=== PATIENT | male | born 1945 | race Caucasian/White ===

== ENCOUNTER 2017-10-01 08:55 | Observation (INO) | payer MEDICARE, OTHER ==
[2017-10-01] VITALS (12 sets, daily range): BP systolic 123–159; BP diastolic 53–82; PULSE 62–106; RESP 16–22; TEMP 96.1–97.2; O2SAT 97–100
[~2017-10-01] VITALS: Ht 177.8 cm; Wt 63.0 kg
[~2017-10-01 08:55] MED LIST: AMOX500C PO; BIAX500T PO; METR-1 PO; NICO14DI18 TD; Z.0.UNKNOWN
[2017-10-01] MEDS ORDERED: MORPHINE SULFATE 4 MG/ML INJ IV PUSH ONE (09:15)
[2017-10-01] MEDS ORDERED: SODIUM CHLORID 0.9% 500 ML INJ 500 ML IV ONE (09:15)
[2017-10-01] MEDS ORDERED: SODIUM CHLORIDE 0.9% FLUSH 10 ML FLUSH IVF PRN (09:15)
[2017-10-01] MEDS ORDERED: NITROGLYCERIN 0.4 MG SL 25 TABS/BTL SL ONE (09:15)
[2017-10-01] MEDS ORDERED: ASPIRIN 325 MG TAB PO ONE (09:15)
--- NOTE | 2017-10-01 09:19 | PD ---
HPI Chief Complaint: Chest Pain Time Seen by Provider: 09:07 Travel History International Travel<30 days: No Contact w/Intl Traveler<30days: No Traveled to known affect area: No History of Present Illness HPI 72-year-old male complains of pain in the middle portion of the left chest with radiation to the left shoulder. It's painful to move the left arm. Patient states the pain is severe and prevents him from sleeping. Stroke pleuritic component reported. He denies any potential musculoskeletal injury/strain to account for the pain. He's had no fever. Occasional chronic cough is reported. Positive smoking history. Patient denies hypertension diabetes and coronary disease. He reports compliance with dyslipidemia medications. PFSH Past Medical History Anemia: Yes Cancer: No Cardiovascular Problems: No Diminished Hearing: No Endocrine: No Genitourinary: No Immune Disorder: No Musculoskeletal: Yes (LEFT DAMAGED ROTATOR CUFF) Neurologic: No Psychiatric: No Reproductive: No Respiratory: No Social History Alcohol Use: Yes (2 BEERS DAILY) Tobacco Use: Yes (1/2 PPD FOR 30 YEARS ) Substance Use: No Allergies-Medications (Allergen,Severity, Reaction): Coded Allergies: No Known Allergies (Verified Allergy, Unknown, 10/01/17) Reported Meds & Prescriptions Reported Meds & Active Scripts Active Reported Fosamax (Alendronate Sodium) 70 Mg Tab 70 Mg PO Q7D Omeprazole 20 Mg Tab 20 Mg PO DAILY [Chol Med] Review of Systems Except as stated in HPI: all other systems reviewed are Neg General / Constitutional: No: Fever Physical Exam Narrative GENERAL: 72-year-old male pleasant well-nourished well-developed Vital Signs Date Time Temp Pulse Resp B/P (MAP) Pulse Ox O2 Delivery O2 Flow Rate FiO2 10/01/17 09:08 18 100 Room Air 10/01/17 09:01 97.2 106 22 159/70 (99) 100 SKIN: Warm and dry. HEAD: Atraumatic. Normocephalic. EYES: Pupils equal and round. No scleral icterus. No injection or drainage. ENT: No nasal bleeding or discharge. Mucous membranes pink and moist. NECK: Trachea midline. No JVD. CARDIOVASCULAR: Regular rate and rhythm. There is tenderness overlying the region of the left upper lateral pectoralis. Tachycardia. Regular rhythm. Patient is well-perfused. RESPIRATORY: There is a pleuritic discomfort on exam. The lung sounds are present bilaterally. GASTROINTESTINAL: Abdomen soft, non-tender, nondistended. Hepatic and splenic margins not palpable. MUSCULOSKELETAL: Extremities without clubbing, cyanosis, or edema. No obvious deformities. NEUROLOGICAL: Awake and alert. No obvious cranial nerve deficits. Motor grossly within normal limits. Five out of 5 muscle strength in the arms and legs. Normal speech. PSYCHIATRIC: Appropriate mood and affect; insight and judgment normal. Data Data Last Documented VS Vital Signs Date Time Temp Pulse Resp B/P (MAP) Pulse Ox O2 Delivery O2 Flow Rate FiO2 10/01/17 12:22 92 16 123/54 (77) 100 Nasal Cannula 2.00 10/01/17 09:29 97.2 Orders Orders Electrocardiogram (10/01/17 09:11) Basic Metabolic Panel (Bmp) (10/01/17 09:11) Ckmb (Isoenzyme) Profile (10/01/17 09:11) Complete Blood Count With Diff (10/01/17 09:11) Magnesium (Mg) (10/01/17 09:11) Prothrombin Time / Inr (Pt) (10/01/17 09:11) Act Partial Throm Time (Ptt) (10/01/17 09:11) Troponin I (10/01/17 09:11) Ecg Monitoring (10/01/17 09:11) Bilateral Bp Monitoring (10/01/17 09:11) Iv Access Insert/Monitor (10/01/17 09:11) Oximetry (10/01/17 09:11) Oxygen Administration (10/01/17 09:11) Aspirin (Aspirin) (10/01/17 09:15) Morphine Inj (Morphine Inj) (10/01/17 09:15) Sodium Chloride 0.9% Flush (Ns Flush) (10/01/17 09:15) Nitroglycerin Sl (Nitrostat Sl) (10/01/17 09:15) Sodium Chlorid 0.9% 500 Ml Inj (Ns 500 M (10/01/17 09:15) Ct Pulmonary Angiogram (10/01/17 09:11) Chest, Pa & Lat (10/01/17 09:11) Iohexol 350 Inj (Omnipaque 350 Inj) (10/01/17 11:21) Furosemide Inj (Lasix Inj) (10/01/17 12:30) B-Type Natriuretic Peptide (10/01/17 12:30) Admit Order (Ed Use Only) (10/01/17 ) Program Schedule Clerk / Telemetry TARI.Q8H (10/01/17 12:31) Vital Signs (Adult) Q4H (10/01/17 12:31) Diet Heart Healthy (10/01/17 Lunch) Activity Oob With Assistance (10/01/17 12:31) Labs Laboratory Tests Test 10/01/17 09:15 10/01/17 12:30 White Blood Count 11.6 TH/MM3 Red Blood Count 3.69 MIL/MM3 Hemoglobin 9.9 GM/DL Hematocrit 29.8 % Mean Corpuscular Volume 80.8 FL Mean Corpuscular Hemoglobin 26.7 PG Mean Corpuscular Hemoglobin Concent 33.1 % Red Cell Distribution Width 14.6 % Platelet Count 582 TH/MM3 Mean Platelet Volume 6.5 FL Neutrophils (%) (Auto) 71.6 % Lymphocytes (%) (Auto) 14.9 % Monocytes (%) (Auto) 9.8 % Eosinophils (%) (Auto) 2.8 % Basophils (%) (Auto) 0.9 % Neutrophils # (Auto) 8.4 TH/MM3 Lymphocytes # (Auto) 1.7 TH/MM3 Monocytes # (Auto) 1.1 TH/MM3 Eosinophils # (Auto) 0.3 TH/MM3 Basophils # (Auto) 0.1 TH/MM3 CBC Comment DIFF FINAL Differential Comment Prothrombin Time 12.0 SEC Prothromb Time International Ratio 1.2 RATIO Activated Partial Thromboplast Time 31.3 SEC Blood Urea Nitrogen 11 MG/DL Creatinine 1.10 MG/DL Random Glucose 114 MG/DL Calcium Level 8.8 MG/DL Magnesium Level 1.9 MG/DL Sodium Level 138 MEQ/L Potassium Level 4.1 MEQ/L Chloride Level 104 MEQ/L Carbon Dioxide Level 24.8 MEQ/L Anion Gap 9 MEQ/L Estimat Glomerular Filtration Rate 66 ML/MIN Total Creatine Kinase 26 U/L Troponin I LESS THAN 0.02 NG/ML B-Type Natriuretic Peptide 79 PG/ML MDM Medical Decision Making Medical Screen Exam Complete: Yes Emergency Medical Condition: Yes Medical Record Reviewed: Yes Differential Diagnosis NSTEMI, unstable angina, coronary vasospasm, PE, PTX, aortic dissection, pericarditis, myocarditis, endocarditis, PNA, esophageal disease, aneurysm, musculoskeletal etiologies, anxiety, cocaine/sympathomimetic abuse Narrative Course EKG shows a sinus rhythm at a rate of 81 with a right bundle branch block pattern with a similar pattern observed 7 years prior RN reports rhythm strip reveals runs of bigeminy CBC & BMP Diagram 10/01/17 09:15 Calcium Level 8.8, Magnesium Level 1.9 Last Impressions Chest X-Ray 10/01/17910 Signed Impressions: Service Date/Time: Sunday, October 01, 2017 09:28 - CONCLUSION: Compensated cardiomegaly without failure Maycol Duong MD FACR CT Angiography 10/01/17910 Signed Impressions: Service Date/Time: Sunday, October 01, 2017 11:10 - CONCLUSION: Cardiomegaly with mild congestive failure. Negative for central pulmonary emboli. Maycol Duong MD FACR The patient will stay with us in the setting of congestive heart failure with chest pain and possible coronary disease. 20 mg IV Lasix ordered at 1223. d/w Dr Vee for [facility] Critical Care Narrative Aggregate critical care time was 35 minutes. Time to perform other separately billable procedures was not included in the critical care time. My time did not include minutes spent treating any other patients simultaneously or on activities that did not directly contribute to the patient's treatment. The services I provided to this patient were to treat and/or prevent clinically significant deterioration that could result in: Cardiopulmonary arrest, respiratory arrest, sepsis I provided critical care services requiring my management, as noted below: Chart data review, documentation time, medication orders and management, vital sign assessments/reviewing monitor data, ordering and reviewing lab tests, ordering and interpreting/reviewing x-rays and diagnostic studies, care of the patient and discussion of the patient with the admitting physicians. Diagnosis Primary Impression: Congestive heart failure Qualified Codes: I50.9 - Heart failure, unspecified Additional Impressions: Chest pain Qualified Codes: R07.9 - Chest pain, unspecified Arrhythmia Qualified Codes: I49.9 - Cardiac arrhythmia, unspecified Admitting Information Admitting Physician Requests: Ad Chase MD Oct 01, 2017 09:19
[2017-10-01] MEDS ORDERED: CHOL MED (09:20)
[2017-10-01] MEDS ORDERED: OMEP20TA93 PO (09:20)
[2017-10-01] MEDS ORDERED: FOSA70TA PO (09:20)
[2017-10-01 09:30] LABS: AUTOMATED NEUTROPHIL # 8.4 TH/MM3 (1.8-7.7); BASOPHIL # 0.1 TH/MM3 (0-0.2); BASOPHIL % 0.9 % (0.0-2.0); EOSINOPHIL # 0.3 TH/MM3 (0-0.4); EOSINOPHIL % 2.8 % (0.0-4.0); HEMATOCRIT 29.8 % (39.0-51.0); HEMOGLOBIN 9.9 GM/DL (13.0-17.0); LYMPH % 14.9 % (9.0-44.0); LYMPHOCYTE # 1.7 TH/MM3 (1.0-4.8); MEAN CELL VOLUME 80.8 FL (80.0-100.0); MEAN CORPUSCULAR HEMOGLOBIN 26.7 PG (27.0-34.0); MEAN CORPUSCULAR HGB CONC 33.1 % (32.0-36.0); MEAN PLATELET VOLUME 6.5 FL (7.0-11.0); MONO % 9.8 % (0.0-8.0); MONOCYTE # 1.1 TH/MM3 (0-0.9); NEUT % 71.6 % (16.0-70.0); PLATELET COUNT 582 TH/MM3 (150-450); RED BLOOD COUNT 3.69 MIL/MM3 (4.50-5.90); RED CELL DISTRIBUTION WIDTH 14.6 % (11.6-17.2); WHITE BLOOD COUNT 11.6 TH/MM3 (4.0-11.0)
--- NOTE | 2017-10-01 09:46 | RADRPT ---
EXAM DATE/TIME: 10/01/2017 09:28 [facility] COMPARISON: No previous studies available for comparison. INDICATIONS : Left side chest pain. MEDICAL HISTORY : smoker SURGICAL HISTORY : None. ENCOUNTER: Initial ACUITY: 2 days PAIN SCORE: 8/10 LOCATION: Bilateral chest FINDINGS: Compensated cardiomegaly without failure. Thoracic aorta are tortuous and uncoiled. Moderate scolio sis. Osteopenia. Negative for pneumothorax. . CONCLUSION: Compensated cardiomegaly without failure Maycol Duong MD FACR on October 01, 2017 at 9:42 Board Certified Radiologist. This report was verified electronically.
[2017-10-01 09:58] LABS: INTERNATIONAL NORMALIZED RATIO 1.2 RATIO
[2017-10-01 10:17] LABS: CHLORIDE 104 MEQ/L (98-107); GLUCOSE,RANDOM 114 MG/DL (74-106); SODIUM (NA) 138 MEQ/L (136-145)
[2017-10-01 10:18] LABS: BICARBONATE 24.8 MEQ/L (21.0-32.0); CALCIUM 8.8 MG/DL (8.5-10.1); MAGNESIUM 1.9 MG/DL (1.5-2.5)
[2017-10-01 10:20] LABS: GLOMERULAR FILTRATION RATE 66 ML/MIN (>89)
[2017-10-01 10:26] LABS: BLOOD UREA NITROGEN 11 MG/DL (7-18)
[2017-10-01 10:34] LABS: TROPONIN I LESS THAN 0.02 NG/ML (0.02-0.05)
[2017-10-01] MEDS ORDERED: IOHEXOL 350 MG/ML 10 ML VIAL (for RAD DIAG) IVCONTRAST ONE (11:21)
--- NOTE | 2017-10-01 12:06 | RADRPT ---
EXAM DATE/TIME: 10/01/2017 11:10 [facility] COMPARISON: No previous studies available for comparison. INDICATIONS : Left chest pain radiating to left shoulder. IV CONTRAST: 75 cc Omnipaque 350 (iohexol) IV RADIATION DOSE: 8.32 CTDIvol (mGy) MEDICAL HISTORY : None SURGICAL HISTORY : None. ENCOUNTER: Initial ACUITY: 2 days PAIN SCALE: 7/10 LOCATION: Left chest TECHNIQUE: Volumetric scanning of the chest was performed using a pulmonary embolism protocol MIP images were re constructed. Using automated exposure control and adjustment of the mA and/or kV according to patien t size, radiation dose was kept as low as reasonably achievable to obtain optimal diagnostic quality images. DICOM format image data is available electronically for review and comparison. Follow-up recommendations for detected pulmonary nodules are based at a minimum on nodule size and pa tient risk factors according to Fleischner Society Guidelines. FINDINGS: PULMONARY ARTERIES: No filling defects are seen in the pulmonary arteries through the segmental level. LUNGS: Mild interstitial edema without pleural effusion. Minimal pleural thickening on the right MEDIASTINUM: There is good visualization of the great vessels of the middle mediastinum. No evidence of mediastin al or hilar adenopathy/mass. Dilatation of the ascending and descending aorta. Moderate coronary ca lcifications. Mitral valve annulus calcification. MUSCULOSKELETAL: CPT with degenerative changes in the thoracic spine. MISCELLANEOUS: The visualized upper abdominal organs demonstrate no acute abnormality. CONCLUSION: Cardiomegaly with mild congestive failure. Negative for central pulmonary emboli. Maycol Duong MD FACR on October 01, 2017 at 12:02 Board Certified Radiologist. This report was verified electronically.
[2017-10-01] MEDS ORDERED: FUROSEMIDE 20 MG/2 ML VIAL IV PUSH ONE (12:30)
[2017-10-01] MEDS ORDERED: SODIUM CHLORIDE 0.9% FLUSH 10 ML FLUSH IV FLUSH PRN (13:15)
--- NOTE | 2017-10-01 13:42 | HHI.HP ---
[facility] Service [facility] Primary Care Physician Yasmin Bell MD Admission Diagnosis CHF, Chest pain Diagnoses: Chief Complaint: Chest pain Travel History International Travel<30 Days: No Contact w/Intl Traveler <30 Da: No Traveled to Known Affected Are: No History of Present Illness This patient is a 72-year-old gentleman with at least [id number] history of tobaccoism who comes in with left-sided chest pain radiating to the left shoulder. He says the pain was severe and worse when he was sleeping he does have a chronic cough and thought his cough may have been worse. He notes no trauma to the area. He has not had any fevers or chills.. He said he noted increased coughing and increased shortness of breath over the last 48 hours. There have been no sick contacts. Review of Systems Constitutional: DENIES: Diaphoretic episodes, Fatigue, Fever, Weight gain, Weight loss, Chills, Dizziness, Change in appetite, Night Sweats Endocrine: DENIES: Heat/cold intolerance, Polydipsia, Polyuria, Polyphagia Eyes: DENIES: Blurred vision, Diplopia, Eye inflammation, Eye pain, Vision loss , Photosensitivity, Double Vision Ears, nose, mouth, throat: DENIES: Tinnitus, Hearing loss, Vertigo, Nasal discharge, Oral lesions, Throat pain, Hoarseness, Ear Pain, Running Nose, Epistaxis, Sinus Pain, Toothache, Odynophagia Respiratory: COMPLAINS OF: Cough, DENIES: Apneas, Snoring, Wheezing, Hemoptysis , Sputum production, Shortness of breath Cardiovascular: COMPLAINS OF: Chest pain, Dyspnea on Exertion Gastrointestinal: DENIES: Abdominal pain, Black stools, Bloody stools, Constipation, Diarrhea, Nausea, Vomiting, Difficulty Swallowing, Anorexia Genitourinary: DENIES: Sexual dysfunction, Urinary frequency, Urinary incontinence, Urgency, Hematuria, Dysuria, Nocturia, Penile Discharge, Testicular Pain, Testicular Swelling Musculoskeletal: DENIES: Joint pain, Muscle aches, Stiffness, Joint Swelling, Back pain, Neck pain Integumentary: DENIES: Abnormal pigmentation, Nail changes, Pruritus, Rash Hematologic/lymphatic: DENIES: Bruising, Lymphadenopathy Immunologic/allergic: DENIES: Eczema, Urticaria Neurologic: DENIES: Abnormal gait, Headache, Localized weakness, Paresthesias, Seizures, Speech Problems, Tremor, Poor Balance Psychiatric: DENIES: Anxiety, Confusion, Mood changes, Depression, Hallucinations, Agitation, Suicidal Ideation, Homicidal Ideation, Delusions Except as stated in HPI: all other systems reviewed are Neg Past Family Social History Past Medical History Prostate disease Dyspepsia Past Surgical History Rotator cuff Reported Medications Reviewed in the EMR Allergies: Coded Allergies: No Known Allergies (Verified Allergy, Unknown, 10/01/17) Active Ordered Medications Reviewed in the EMR Family History Mother and father from old age initially per patient however he said his mother when he was 4 years old and she was "young" Social History Chronic tobacco daily unquantified No alcohol Lives with his animals Physical Exam Vital Signs Vital Signs Date Time Temp Pulse Resp B/P (MAP) Pulse Ox O2 Delivery O2 Flow Rate FiO2 10/01/17 13:14 10/01/17 12:22 92 16 123/54 (77) 100 Nasal Cannula 2.00 10/01/17 09:44 97 16 136/53 (80) 100 Nasal Cannula 2.00 144/60 (88) 10/01/17 09:29 97.2 94 18 142/69 (93) 100 Nasal Cannula 2.00 10/01/17 09:23 Nasal Cannula 2.00 10/01/17 09:21 16 100 Room Air 10/01/17 09:08 18 100 Room Air 10/01/17 09:01 97.2 106 22 159/70 (99) 100 Physical Exam GENERAL: This is a well-nourished, well-developed patient, in no apparent distress. SKIN: No rashes, ecchymoses or lesions. Cool and dry. HEAD: Atraumatic. Normocephalic. No temporal or scalp tenderness. EYES: Pupils equal round and reactive. Extraocular motions intact. No scleral icterus. No injection or drainage. ENT: Nose without bleeding, purulent drainage or septal hematoma. Throat without erythema, tonsillar hypertrophy or exudate. Uvula midline. Airway patent. Severe caries and dental erosion NECK: Trachea midline. No JVD or lymphadenopathy. Supple, nontender, no meningeal signs. CARDIOVASCULAR: Sinus tachycardia without murmurs, gallops, or rubs. RESPIRATORY: Clear to auscultation. Breath sounds equal bilaterally. No wheezes , rales, or rhonchi. GASTROINTESTINAL: Abdomen soft, non-tender, nondistended. No hepato-splenomegaly , or palpable masses. No guarding. MUSCULOSKELETAL: Extremities without clubbing, cyanosis, or edema. No joint tenderness, effusion, or edema noted. No calf tenderness. Negative Homans sign bilaterally. NEUROLOGICAL: Awake and alert. Cranial nerves II through XII intact. Motor and sensory grossly within normal limits. Five out of 5 muscle strength in all muscle groups. Normal speech. Laboratory Laboratory Tests Test 10/01/17 09:15 White Blood Count 11.6 Red Blood Count 3.69 Hemoglobin 9.9 Hematocrit 29.8 Mean Corpuscular Volume 80.8 Mean Corpuscular Hemoglobin 26.7 Mean Corpuscular Hemoglobin Concent 33.1 Red Cell Distribution Width 14.6 Platelet Count 582 Mean Platelet Volume 6.5 Neutrophils (%) (Auto) 71.6 Lymphocytes (%) (Auto) 14.9 Monocytes (%) (Auto) 9.8 Eosinophils (%) (Auto) 2.8 Basophils (%) (Auto) 0.9 Neutrophils # (Auto) 8.4 Lymphocytes # (Auto) 1.7 Monocytes # (Auto) 1.1 Eosinophils # (Auto) 0.3 Basophils # (Auto) 0.1 CBC Comment DIFF FINAL Differential Comment Prothrombin Time 12.0 Prothromb Time International Ratio 1.2 Activated Partial Thromboplast Time 31.3 Blood Urea Nitrogen 11 Creatinine 1.10 Random Glucose 114 Calcium Level 8.8 Magnesium Level 1.9 Sodium Level 138 Potassium Level 4.1 Chloride Level 104 Carbon Dioxide Level 24.8 Anion Gap 9 Estimat Glomerular Filtration Rate 66 Total Creatine Kinase 26 Troponin I LESS THAN 0.02 Result Diagram: 10/01/1791410/01/17914 Imaging Last Impressions Chest X-Ray 10/01/17910 Signed Impressions: Service Date/Time: Sunday, October 01, 2017 09:28 - CONCLUSION: Compensated cardiomegaly without failure Maycol Duong MD FACR CT Angiography 10/01/17910 Signed Impressions: Service Date/Time: Sunday, October 01, 2017 11:10 - CONCLUSION: Cardiomegaly with mild congestive failure. Negative for central pulmonary emboli. Maycol Duong MD FACR Caprini VTE Risk Assessment Caprini VTE Risk Assessment: Mod/High Risk (score >= 2) Caprini Risk Assessment Model Point Value = 1 Point Value = 2 Point Value = 3 Point Value = 5 Age 41-60 Minor surgery BMI > 25 kg/m2 Swollen legs Varicose veins or History of unexplained or recurrent spontaneous Oral contraceptives or hormone replacement Sepsis (< 1 month) Serious lung disease, including pneumonia (< 1 month) Abnormal pulmonary function Acute myocardial infarction Congestive heart failure (< 1 month) History of inflammatory bowel disease Medical patient at bed rest Age 61-74 Arthroscopic surgery Major open surgery (> 45 min) Laparoscopic surgery (> 45 min) Malignancy Confined to bed (> 72 hours) Immobilizing plaster cast Central venous access Age >= 75 History of VTE Family history of VTE Factor V Leiden Prothrombin [id number] Lupus anticoagulant Anticardiolipin antibodies Elevated serum homocysteine Heparin-induced thrombocytopenia Other congenital or acquired thrombophilia Stroke (< 1 month) Elective arthroplasty Hip, pelvis, or leg fracture Acute spinal cord injury (< 1 month) Prophylaxis Regimen Total Risk Factor Score Risk Level Prophylaxis Regimen 0-1 Low Early ambulation 2 Moderate Order ONE of the following: *Sequential Compression Device (SCD) *Heparin 5000 units SQ BID 3-4 Higher Order ONE of the following medications: *Heparin 5000 units SQ TID *Enoxaparin/Lovenox 40 mg SQ daily (WT < 150 kg, CrCl > 30 mL/min) *Enoxaparin/Lovenox 30 mg SQ daily (WT < 150 kg, CrCl > 10-29 mL/min) *Enoxaparin/Lovenox 30 mg SQ BID (WT < 150 kg, CrCl > 30 mL/min) AND/OR *Sequential Compression Device (SCD) 5 or more Highest Order ONE of the following medications: *Heparin 5000 units SQ TID (Preferred with Epidurals) *Enoxaparin/Lovenox 40 mg SQ daily (WT < 150 kg, CrCl > 30 mL/min) *Enoxaparin/Lovenox 30 mg SQ daily (WT < 150 kg, CrCl > 10-29 mL/min) *Enoxaparin/Lovenox 30 mg SQ BID (WT < 150 kg, CrCl > 30 mL/min) AND *Sequential Compression Device (SCD) Assessment and Plan Problem List: (1) Chest pain ICD Code: R07.9 - Chest pain, unspecified Status: Acute Plan: Atypical in nature Worrisome for cardiac given patient's abnormal EKG and signs and symptoms of atypical chest pain We will continue with cardiac workup r/o copd we will use IV steroids and nebulized bronchodilators and add short course of antibiotics (2) Anemia ICD Code: D64.9 - Anemia, unspecified Plan: Workup in progress Etiology unclear at this Code Status full code Discussed Condition With patient, ER MD Problem Qualifiers (1) Chest pain: Qualified Codes: R07.9 - Chest pain, unspecified Elizabet Vee MD Oct 01, 2017 13:42
[2017-10-01] MEDS ORDERED: methylPREDNISolone SOD SUCC 125 MG/2 ML VIAL IV PUSH ONE (14:00)
[2017-10-01] MEDS ORDERED: ACETAMINOPHEN 500 MG CPLT PO PRN (14:00)
[2017-10-01] MEDS ORDERED: NITROGLYCERIN 0.4 MG SL 25 TABS/BTL SL PRN (14:00)
[2017-10-01] MEDS: HEPARIN SODIUM - SQ 10,000 UNITS/ML VIAL SQ SCH ×2 (14:01→22:04)
[2017-10-01] MEDS: RESP: ALBUTEROL 2.5 MG/IPRATROPIUM 0.5 MG NEB (SCH) NEB ×2 (14:51→19:14)
[2017-10-01 15:24] LABS: TROPONIN I LESS THAN 0.02 NG/ML (0.02-0.05)
[2017-10-01] MEDS ORDERED: RESP: ALBUTEROL 2.5 MG/IPRATROPIUM 0.5 MG NEB (PRN) NEB (16:00)
[2017-10-01] MEDS: methylPREDNISolone SOD SUCC 40 MG/1 ML VIAL IV PUSH SCH (16:43)
[2017-10-01 19:26] LABS: IRON (FE) 16 MCG/DL (65-175)
[2017-10-01 19:51] LABS: % SATURATION IRON PROFILE 7.6 % (20-50); TOTAL IRON BINDING CAPACITY 210 MCG/DL (250-450)
--- NOTE | 2017-10-01 20:07 | EKG ---
Date Performed: 10/01/2017 Time Performed: 09:12:21 PTAGE: 72 years EKG: Sinus rhythm WITH OCCASIONAL SUPRAVENTRICULAR PREMATURE COMPLEXES RIGHT BUNDLE BRANCH BLOCK MINIMAL VOLTAGE CRITE JUANA FOR LVH, CONSIDER NORMAL VARIANT ABNORMAL ECG PREVIOUS TRACING : 05/13/2011 18.34 Since the previous tracing, no significant change noted DOCTOR: Rik Hicks Interpretating Date/Time 10/01/2017 20:06:10
--- NOTE | 2017-10-01 21:47 | EKG ---
Date Performed: 10/01/2017 Time Performed: 16:25:37 PTAGE: 72 years EKG: Sinus rhythm WITH SHORT NM INTERVAL WITH FREQUENT SUPRAVENTRICULAR PREMATURE COMPLEXES RIGHT BUNDLE BRANCH BLOCK ABNORMAL ECG Compared to prior electrocardiogram, Premature atrial contraction are now present PREVIOUS TRACING : 10/01/2017 09.12 DOCTOR: Toni Arvizu Interpretating Date/Time 10/01/2017 21:46:59
[2017-10-01] MEDS: DOXYCYCLINE HYCLATE 100 MG CAP PO SCH (22:04)
[2017-10-01] MEDS: SODIUM CHLORIDE 0.9% FLUSH 10 ML FLUSH IV FLUSH SCH (22:04)
[2017-10-01] MEDS: FAMOTIDINE 20 MG TAB PO SCH (22:05)
[2017-10-01] MEDS: CARVEDILOL 3.125 MG TAB PO SCH (22:05)
[2017-10-02] VITALS: BP 118/55; PULSE 75; RESP 20; TEMP 98.7; O2SAT 99
[2017-10-02] MEDS: methylPREDNISolone SOD SUCC 40 MG/1 ML VIAL IV PUSH SCH (03:27)
[2017-10-02 04:00] VITALS: BP 130/60; PULSE 71; RESP 20; TEMP 97; O2SAT 98
[2017-10-02] MEDS: HEPARIN SODIUM - SQ 10,000 UNITS/ML VIAL SQ SCH (05:55)
[2017-10-02 07:40] LABS: CALCIUM 8.6 MG/DL (8.5-10.1)
[2017-10-02 07:41] LABS: BICARBONATE 25.1 MEQ/L (21.0-32.0)
[2017-10-02] MEDS: RESP: ALBUTEROL 2.5 MG/IPRATROPIUM 0.5 MG NEB (SCH) NEB (07:43)
[2017-10-02 07:45] VITALS: O2SAT 99
--- NOTE | 2017-10-02 07:46 | EKG ---
Date Performed: 10/01/2017 Time Performed: 22:07:08 PTAGE: 72 years EKG: Sinus rhythm WITH Premature atrial contractions RIGHT BUNDLE BRANCH BLOCK ABNORMAL ECG No significant change from prior electrocardiogram. PREVIOUS TRACING : 10/01/2017 16.25 DOCTOR: Toni Arvizu Interpretating Date/Time 10/02/2017 07:45:07
[2017-10-02] MEDS: CARVEDILOL 3.125 MG TAB PO SCH (08:28)
[2017-10-02] MEDS: FAMOTIDINE 20 MG TAB PO SCH (08:29)
[2017-10-02] MEDS: SODIUM CHLORIDE 0.9% FLUSH 10 ML FLUSH IV FLUSH SCH (08:30)
[2017-10-02] MEDS: DOXYCYCLINE HYCLATE 100 MG CAP PO SCH (08:38)
[2017-10-02 08:51] VITALS: BP 128/58; PULSE 95; RESP 18; TEMP 96.4; O2SAT 96
[2017-10-02] MEDS ORDERED: PANTOPRAZOLE SOD 20 MG DELAYED RELEASE TAB PO SCH (09:00)
[2017-10-02] MEDS ORDERED: ASPIRIN 325 MG TAB PO SCH (09:00)
[2017-10-02] MEDS ORDERED: CARV3.125 PO (11:32)
[2017-10-02] MEDS ORDERED: ASA325 PO (11:32)
[2017-10-02] MEDS ORDERED: DOXY100C PO (11:32)
[2017-10-02] MEDS ORDERED: PRED10PA PO (11:32)
[2017-10-02] MEDS ORDERED: IPRAAER INH (11:32)
--- NOTE | 2017-10-02 11:32 | HHI.DCPOC ---
Discharge Care Plan Diagnosis: (1) Dyspnea (2) Congestive heart failure Goals to Promote Your Health * To prevent worsening of your condition and complications * To maintain your health at the optimal level Directions to Meet Your Goals Take your medications as prescribed Follow your dietary instruction Follow activity as directed Keep your appointments as scheduled Take your immunizations and boosters as scheduled If your symptoms worsen call your PCP, if no PCP go to Urgent Care Center or Emergency Room Smoking is Dangerous to Your Health. Avoid second hand smoke Call the 24-hour hour crisis hotline for domestic abuse at Elizabet Vee MD Oct 02, 2017 11:32
--- NOTE | 2017-10-02 12:01 | HHI.PR ---
Subjective Remarks Mr. Whitehead is seen in follow-up for shortness of breath. Overall improved after respiratory treatments and steroids. Patient did get his echocardiogram but would like to continue getting his treatment through his primary care doctor 's office. Clinically patient is greatly improved with increased appetite and oral intake and decreased shortness of breath Objective Vitals Vital Signs Date Time Temp Pulse Resp B/P (MAP) Pulse Ox O2 Delivery O2 Flow Rate FiO2 10/02/17 08:51 96.4 95 18 128/58 (81) 96 10/02/17 07:45 99 21 10/02/17 04:00 97.0 71 20 130/60 (83) 98 10/02/17 00:00 98.7 75 20 118/55 (76) 99 10/01/17 23:00 63 10/01/17 20:53 97.1 97 18 133/63 (86) 98 10/01/17 19:12 99 21 10/01/17 15:30 96.1 62 20 142/82 (102) 97 10/01/17 15:04 99 21 10/01/17 14:30 96.5 105 20 139/76 (97) 100 10/01/17 14:24 97 10/01/17 13:14 10/01/17 12:22 92 16 123/54 (77) 100 Nasal Cannula 2.00 I/O 10/01/17 10/01/17 10/01/17 10/02/17 10/02/17 10/02/17 07:00 15:00 23:00 07:00 15:00 23:00 Intake Total 500 ml 1260 ml 2 ml Output Total 350 ml Balance 500 ml 910 ml 2 ml Intake Oral 1260 ml IV Total 500 ml 2 ml Output Urine Total 350 ml # Voids 3 # Bowel Movements 2 Result Diagram: 10/01/17 0915 10/02/17 0720 Imaging Last Impressions Chest X-Ray 10/01/17910 Signed Impressions: Service Date/Time: Sunday, October 01, 2017 09:28 - CONCLUSION: Compensated cardiomegaly without failure Maycol Duong MD FACR CT Angiography 10/01/17910 Signed Impressions: Service Date/Time: Sunday, October 01, 2017 11:10 - CONCLUSION: Cardiomegaly with mild congestive failure. Negative for central pulmonary emboli. Maycol Duong MD FACR Objective Remarks GENERAL: This is a well-nourished, well-developed patient, in no apparent distress. CARDIOVASCULAR: Regular rate and rhythm without murmurs, gallops, or rubs. RESPIRATORY: Clear to auscultation. Breath sounds equal bilaterally. No wheezes , rales, or rhonchi. GASTROINTESTINAL: Abdomen soft, non-tender, nondistended. Normal active bowel sounds MUSCULOSKELETAL: Extremities without clubbing, cyanosis, or edema. NEURO: Alert & Oriented x4 to person, place, time, situation. Moves all ext x4 A/P Problem List: (1) Chest pain ICD Code: R07.9 - Chest pain, unspecified Status: Acute Plan: Atypical in nature likely related to heart failure and the COPD Continue outpatient oral steroids and bronchodilators Follow with primary care doctor (2) Anemia ICD Code: D64.9 - Anemia, unspecified Plan: Patient has severe iron deficiency anemia and at this time will benefit from outpatient follow-up as he would like to see his primary care doctor I did discuss this at length with the patient who is agreeable He may need a colonoscopy which at this time he is not agreeable to He will need iron replacement therapy Discharge Planning Discharge home Activity unrestricted Diet heart healthy Problem Qualifiers (1) Chest pain: Qualified Codes: R07.9 - Chest pain, unspecified Elizabet Vee MD Oct 02, 2017 12:01
[2017-10-02] MEDS ORDERED: FERR325T18 PO (12:02)
--- NOTE | 2017-10-02 15:08 | ECHRPT ---
Indication: CONCLUSIONS The left ventricular systolic function is low normal with an estimated ejection fraction in the rang e of 50- 55%. Normal left ventricular size. Wall thickness is normal. No regional wall motion abnormalities are present. Mild thickening of the mitral valve leaflets. [id number] mitral valve regurgitation. Mild mitral annular calcification. Aortic valve sclerosis is present. possible [id number] aortic valve regurgitation. BP: 130 / 60 HR: 83 Rhythm: Sinus MEASUREMENTS (Male / Female) Normal Values Technical Quality:Technically difficult study 2D ECHO LV Diastolic Diameter PLAX 6.1 cm 4.2 - 5.9 / 3.9 - 5.3 cm LV Systolic Diameter PLAX 4.6 cm IVS Diastolic Thickness 1.0 cm 0.6 - 1.0 / 0.6 - 0.9 cm LVPW Diastolic Thickness 1.0 cm 0.6 - 1.0 / 0.6 - 0.9 cm LV Relative Wall Thickness 0.3 LVOT Diameter 1.9 cm LA Systolic Diameter LX 3.9 cm 3.0 - 4.0 / 2.7 - 3.8 cm LV Ejection Fraction MOD 4C 49.7 % LV Cardiac Index MOD 4C 3604.7 cm/minm LV Ejection Fraction 4C AL 52.0 % LV Cardiac Index 4C AL 3925.6 cm/minm M-MODE LV Diastolic Diameter MM 7.6 cm 4.2 - 5.9 / 3.9 - 5.3 cm LV Systolic Diameter MM 5.7 cm LV Ejection Fraction MM Teich 48.1 % LV Cardiac Index MM Teich 7026.6 cm/minm IVS Diastolic Thickness MM 1.0 cm 0.6 - 1.0 / 0.6 - 0.9 cm LVPW Diastolic Thickness MM 1.0 cm 0.6 - 1.0 / 0.6 - 0.9 cm LV Relative Wall Thickness MM 0.3 0.24 - 0.42 / 0.22 - 0.42 LV Mass Index MM 222.3 g/m 49 - 115 / 43 - 95 g/m Aortic Root Diameter MM 3.5 cm LA Systolic Diameter MM 2.9 cm LA Ao Ratio MM 0.8 AV Cusp Separation MM 2.3 cm DOPPLER AV Peak Velocity 239.0 cm/s AV Peak Gradient 22.8 mmHg AI Peak Velocity 494.0 cm/s AI Peak Gradient 97.6 mmHg AI Pressure Half Time 330.0 ms LVOT Peak Velocity 135.0 cm/s LVOT Peak Gradient 7.3 mmHg AV Area Cont Eq pk 1.6 cm MV Area PHT 2.9 cm Mitral E Point Velocity 76.5 cm/s Mitral A Point Velocity 122.0 cm/s Mitral E to A Ratio 0.6 LV E' Lateral Velocity 5.3 cm/s Mitral E to LV E' Lateral Ratio 14.5 LV E' Septal Velocity 3.1 cm/s Mitral E to LV E' Septal Ratio 24.5 TR Peak Velocity 158.0 cm/s TR Peak Gradient 10.0 mmHg Right Atrial Pressure 10.0 mmHg Pulmonary Artery Systolic Pressu 20.0 mmHg Right Ventricular Systolic Press 20.0 mmHg FINDINGS LEFT VENTRICLE The left ventricular systolic function is low normal with an estimated ejection fraction in the rang e of 50- 55%. Normal left ventricular size. Wall thickness is normal. No regional wall motion abnormalities are present. RIGHT VENTRICLE Normal right ventricular size and systolic function. LEFT ATRIUM The left atrial size is normal. RIGHT ATRIUM The right atrial size is normal. ATRIAL SEPTUM Normal atrial septal thickness without atrial level shunting by limited color doppler interrogation. AORTA The aortic root and proximal ascending aorta are normal in size on limited imaging. MITRAL VALVE Mild thickening of the mitral valve leaflets. Jzgie-[id number]-kpfq mitral valve regurgitation. Mild mitral annular calcification. AORTIC VALVE Trileaflet aortic valve. Aortic valve sclerosis is present. [id number] aortic valve regurgitation. TRICUSPID VALVE Structurally normal tricuspid valve. No tricuspid valve stenosis or regurgitation. PULMONARY VALVE No pulmonary valve regurgitation or stenosis. VESSELS The inferior vena cava is normal in size. PERICARDIUM No pericardial effusion. Adrián Rodriguez MD, FACC, [facility] [place] (Electronically Signed) Final Date:02 October 2017 15:06
== END 2017-10-02 14:38 | disposition home or self-care (01) ==
LOC: PHED 08:55 → INTOOBSV 12:32 → PHEDA 12:32 → PH3A 13:35
PROVIDERS: ADMIT Hospitalist; ATTEND Hospitalist
DX: R07.89 Other chest pain (principal); D50.9 Iron deficiency anemia, unspecified; I49.1 Atrial premature depolarization; I45.10 Unspecified right bundle-branch block; R00.0 Tachycardia, unspecified; R05 Cough; R94.31 Abnormal electrocardiogram [ECG] [EKG]; I50.9 Heart failure, unspecified; Z87.891 Personal history of nicotine dependence
CPT/HCPCS: 71046; 71275; 80048; 82550; 82607; 83540; 83550; 83735; 83880; 84443; 84484; 85025; 85610; 85730; 93005; 93306; 94640; 94664; 96361; 96372; 96374; 96375; 96376; 99291; G0378; J1644; J1940; J2270; J2920; J2930; J7040; Q9967

== ENCOUNTER 2017-11-01 12:26 | Emergency (ER) | payer OTHER, MEDICAID ==
[~2017-11-01] VITALS: Ht 177.8 cm; Wt 61.0 kg
[~2017-11-01 12:26] MED LIST changes: -AMOX500C PO; +ASA325 PO; -BIAX500T PO; +CARV3.125 PO; +CHOL MED; +DOXY100C PO; +FERR325T18 PO; +FOSA70TA PO; +IPRAAER INH; -METR-1 PO; -NICO14DI18 TD; +OMEP20TA93 PO; +PRED10PA PO; -Z.0.UNKNOWN
[2017-11-01 12:32] VITALS: BP 163/69; PULSE 97; RESP 21; TEMP 98.3; O2SAT 99
[2017-11-01 12:43] VITALS: BP_SYST 106; BP_SYST 141; BP_DIAS 54; BP_DIAS 87; PULSE 73; PULSE 84; RESP 17; TEMP 98.2; O2SAT 98
--- NOTE | 2017-11-01 12:54 | PD ---
HPI Chief Complaint: Chest Pain Time Seen by Provider: 12:36 Travel History International Travel<30 days: No Contact w/Intl Traveler<30days: No Traveled to known affect area: No History of Present Illness HPI 72-year-old male presents for evaluation. For 1 month he has had pain in the left side of his chest, neck, sharp pain that is constant and radiates down his left arm. The pain is worse with movement, coughing. He was admitted for evaluation of this pain on October 01. He has CT pulmonary angiogram which revealed cardiomegaly and mild congestive failure with otherwise normal. He had negative cardiac enzymes 2. He had an echocardiogram which revealed ejection fraction of 50-55%. He was discharged in his pain persisted. He was seen yesterday by his drywall application supervisor Dr. Arvizu who he reports does not feel that this pain is cardiac at all and feels that it is musculoskeletal. The patient is not currently using any medication for symptom relief. He has no other complaints. PFSH Past Medical History Anemia: Yes Cancer: No Cardiovascular Problems: Yes High Cholesterol: Yes Diminished Hearing: No Endocrine: No Gastrointestinal Disorders: No Genitourinary: No Hypertension: Yes Immune Disorder: No Implanted Vascular Access Dvce: No Neurologic: No Psychiatric: No Reproductive: No Respiratory: No Past Surgical History Other Surgery: No Social History Alcohol Use: Yes (2 BEERS DAILY) Tobacco Use: Yes (1/2 PPD FOR 30 YEARS ) Substance Use: No Allergies-Medications (Allergen,Severity, Reaction): Coded Allergies: No Known Allergies (Verified Allergy, Unknown, 11/01/17) Reported Meds & Prescriptions Reported Meds & Active Scripts Active Hydrocodone-Acetaminophen 5-325 mg Tab 1 Tab PO Q6H PRN Ferrous Sulfate 325 Mg (65 Mg Iron) Tablet 325 Mg PO BIDPC Combivent Respimat Inh (Ipratropium-Albuterol Inh) 20-100 Shelter/Act Aero 1 Puff INH QID Px Aspirin (Aspirin) 325 Mg Tab 325 Mg PO DAILY Coreg (Carvedilol) 3.125 Mg Tab 3.125 Mg PO BID Reported Fosamax (Alendronate Sodium) 70 Mg Tab 70 Mg PO Q7D Review of Systems Except as stated in HPI: all other systems reviewed are Neg Physical Exam Narrative GENERAL: Elderly male who is in no acute distress. SKIN: Warm and dry. HEAD: Atraumatic. Normocephalic. EYES: Pupils equal and round. No scleral icterus. No injection or drainage. ENT: No nasal bleeding or discharge. Mucous membranes pink and moist. NECK: Trachea midline. No JVD. CARDIOVASCULAR: Regular rate and rhythm. No murmur appreciated. RESPIRATORY: No accessory muscle use. Clear to auscultation. Breath sounds equal bilaterally. GASTROINTESTINAL: Abdomen soft, non-tender, nondistended. Hepatic and splenic margins not palpable. MUSCULOSKELETAL: No obvious deformities. There is tenderness to palpation to the left anterior chest wall, left shoulder joint and left cervical paravertebral musculature. There is no rash. The patient maintains full range of motion of the neck in the extremities. No lower extremity edema. NEUROLOGICAL: Awake and alert. No obvious cranial nerve deficits. Motor grossly within normal limits. Normal speech. Data Data Last Documented VS Vital Signs Date Time Temp Pulse Resp B/P (MAP) Pulse Ox O2 Delivery O2 Flow Rate FiO2 11/01/17 13:33 98.3 67 18 119/58 (78) 98 Room Air 116/55 (75) 11/01/17 12:43 Orders Orders Electrocardiogram (11/01/17 12:51) Basic Metabolic Panel (Bmp) (11/01/17 12:51) Ckmb (Isoenzyme) Profile (11/01/17 12:51) Complete Blood Count With Diff (11/01/17 12:51) Magnesium (Mg) (11/01/17 12:51) Troponin I (11/01/17 12:51) Chest, Single Ap (11/01/17 12:51) Ecg Monitoring (11/01/17 12:51) Bilateral Bp Monitoring (11/01/17 12:51) Iv Access Insert/Monitor (11/01/17 12:51) Ct Cerv Spine W/O Contrast (11/01/17 ) Labs Laboratory Tests Test 11/01/17 12:50 White Blood Count 12.9 TH/MM3 Red Blood Count 3.50 MIL/MM3 Hemoglobin 8.7 GM/DL Hematocrit 27.2 % Mean Corpuscular Volume 77.7 FL Mean Corpuscular Hemoglobin 24.8 PG Mean Corpuscular Hemoglobin Concent 31.9 % Red Cell Distribution Width 17.0 % Platelet Count 659 TH/MM3 Mean Platelet Volume 6.9 FL Neutrophils (%) (Auto) 71.8 % Lymphocytes (%) (Auto) 11.9 % Monocytes (%) (Auto) 11.9 % Eosinophils (%) (Auto) 3.3 % Basophils (%) (Auto) 1.1 % Neutrophils # (Auto) 9.2 TH/MM3 Lymphocytes # (Auto) 1.5 TH/MM3 Monocytes # (Auto) 1.5 TH/MM3 Eosinophils # (Auto) 0.4 TH/MM3 Basophils # (Auto) 0.1 TH/MM3 CBC Comment DIFF FINAL Differential Comment Blood Urea Nitrogen 16 MG/DL Creatinine 1.34 MG/DL Random Glucose 97 MG/DL Calcium Level 8.6 MG/DL Magnesium Level 1.8 MG/DL Sodium Level 140 MEQ/L Potassium Level 3.9 MEQ/L Chloride Level 106 MEQ/L Carbon Dioxide Level 24.2 MEQ/L Anion Gap 10 MEQ/L Estimat Glomerular Filtration Rate 53 ML/MIN Total Creatine Kinase 64 U/L Troponin I LESS THAN 0.02 NG/ML MDM Medical Decision Making Medical Screen Exam Complete: Yes Emergency Medical Condition: Yes Medical Record Reviewed: Yes Differential Diagnosis Herniated nucleus pulposus, cervical radiculopathy, muscle spasm, degenerative disc disease, atypical chest pain, acute coronary syndrome, pericarditis, myocarditis Narrative Course Patient's pain is very atypical and appears musculoskeletal examination. He has had recent echocardiogram, CT pulmonary angiogram, he saw his drywall application supervisor yesterday who feels that the pain is musculoskeletal in examination is consistent with musculoskeletal pain. His EKG today reveals no acute ischemic changes, there is right bundle branch block and occasional ectopic premature complexes. Cardiac enzymes are negative. Chest x-ray is stable. CT cervical spine reveals mild multilevel degenerative disc disease. At this point in time the plan is to treat him symptomatically with a short course of pain medication. He has an appointment with his primary care physician in 2 days. He is stable for discharge. Diagnosis Primary Impression: Chest wall pain Additional Impression: Neck pain Additional Instructions: Medication as needed. Do not drive or drink alcohol and taking this medication. Follow-up in 2 days with primary care physician as scheduled. Return for any emergent medical conditions. Med/Other Pt SpecificInfo: Prescription(s) given Scripts Hydrocodone-Acetaminophen (Hydrocodone-Acetaminophen) 5-325 mg Tab 1 TAB PO Q6H Y for PAIN, #12 TAB 0 Refills Prov: Sophia Alarcon 11/01/17 Disposition: 01 DISCHARGE HOME Condition: Stable Ag Armenta Nov 01, 2017 12:54
[2017-11-01 13:32] LABS: AUTOMATED NEUTROPHIL # 9.2 TH/MM3 (1.8-7.7); BASOPHIL # 0.1 TH/MM3 (0-0.2); BASOPHIL % 1.1 % (0.0-2.0); EOSINOPHIL # 0.4 TH/MM3 (0-0.4); EOSINOPHIL % 3.3 % (0.0-4.0); HEMATOCRIT 27.2 % (39.0-51.0); HEMOGLOBIN 8.7 GM/DL (13.0-17.0); LYMPH % 11.9 % (9.0-44.0); LYMPHOCYTE # 1.5 TH/MM3 (1.0-4.8); MEAN CELL VOLUME 77.7 FL (80.0-100.0); MEAN CORPUSCULAR HEMOGLOBIN 24.8 PG (27.0-34.0); MEAN CORPUSCULAR HGB CONC 31.9 % (32.0-36.0); MEAN PLATELET VOLUME 6.9 FL (7.0-11.0); MONO % 11.9 % (0.0-8.0); MONOCYTE # 1.5 TH/MM3 (0-0.9); NEUT % 71.8 % (16.0-70.0); PLATELET COUNT 659 TH/MM3 (150-450); WHITE BLOOD COUNT 12.9 TH/MM3 (4.0-11.0)
[2017-11-01 13:33] VITALS: BP_SYST 116; BP_SYST 119; BP_DIAS 55; BP_DIAS 58; PULSE 67; RESP 18; TEMP 98.3; O2SAT 98
[2017-11-01 13:49] LABS: BICARBONATE 24.2 MEQ/L (21.0-32.0); BLOOD UREA NITROGEN 16 MG/DL (7-18); CALCIUM 8.6 MG/DL (8.5-10.1); CHLORIDE 106 MEQ/L (98-107); CREATININE 1.34 MG/DL (0.60-1.30); GLOMERULAR FILTRATION RATE 53 ML/MIN (>89); GLUCOSE,RANDOM 97 MG/DL (74-106); MAGNESIUM 1.8 MG/DL (1.5-2.5); SODIUM (NA) 140 MEQ/L (136-145)
[2017-11-01 13:53] LABS: TROPONIN I LESS THAN 0.02 NG/ML (0.02-0.05)
--- NOTE | 2017-11-01 13:59 | RADRPT ---
EXAM DATE/TIME: 11/01/2017 13:16 [facility] COMPARISON: CHEST PA & LAT, October 01, 2017, 9:28. CT PULMONARY ANGIOGRAM, October 01, 2017, 11:10. INDICATIONS : Chest pain. MEDICAL HISTORY : None. SURGICAL HISTORY : None. ENCOUNTER: Initial ACUITY: 1 month PAIN SCORE: 6/10 LOCATION: Bilateral chest FINDINGS: A single view of the chest demonstrates the lungs to be symmetrically aerated without evidence of mas s, infiltrate or effusion. Heart size remains prominent a probable compensated. Tortuosity of the tho racic aorta. Dextroscoliosis of the dorsal spine. CONCLUSION: 1. Stable chest with compensated cardiomegaly. 2. No acute infiltrate Bird Saldivar MD on November 01, 2017 at 13:51 Board Certified Radiologist. This report was verified electronically.
--- NOTE | 2017-11-01 14:52 | RADRPT ---
EXAM DATE/TIME: 11/01/2017 14:06 [facility] COMPARISON: No previous studies available for comparison. INDICATIONS : Left arm and shoulder pain. RADIATION DOSE: 16.75 CTDIvol (mGy) MEDICAL HISTORY : Cardiovascular disease. Hypertension. SURGICAL HISTORY : None. ENCOUNTER: Initial ACUITY: 1 day PAIN SCALE: 7/10 LOCATION: Right neck TECHNIQUE: Volumetric scanning of the cervical spine was performed. Multiplanar reconstructions in the sagittal, coronal and oblique axial planes were performed. Using automated exposure control and adjustment o f the mA and/or kV according to patient size, radiation dose was kept as low as reasonably achievable to obtain optimal diagnostic quality images. DICOM format image data is available electronically f or review and comparison. FINDINGS: . Sagittal and coronal reconstructions show mild multilevel degenerative disc disease with some loss of disc height most prominent at C3-4 and C5-6. Small anterior marginal spurs at the C5-6 and C6-7 le fadia. Minimal grade 1 anterolisthesis of C3 on 4. Spinal canal appears to be adequate throughout. No a cute fracture. C2-C3: The bony spinal canal is normal in size. No evidence of disc bulge or herniation. The neural forami na are bilaterally patent. C3-C4: Bilateral vertebral ridging. Spinal canal and neural foramina are adequate C4-C5: The bony spinal canal is normal in size. No evidence of disc bulge or herniation. The neural forami na are bilaterally patent. C5-C6: The bony spinal canal is normal in size. No evidence of disc bulge or herniation. The neural forami na are bilaterally patent. C6-C7: Mild vertebral ridging. Spinal canal and neural foramina are adequate C7-T1: The bony spinal canal is normal in size. No evidence of disc bulge or herniation. The neural forami na are bilaterally patent. CONCLUSION: 1. Mild multilevel degenerative disc disease most prominent at C3-4 and C6-7 with some uncovertebral ridging posteriorly. 2. However, the spinal canal and neural foramina are adequate throughout with no obvious cord or nerv e root compromise. No fracture Bird Saldivar MD on November 01, 2017 at 14:47 Board Certified Radiologist. This report was verified electronically.
[2017-11-01] MEDS ORDERED: HYDR-3516 PO (15:24)
--- NOTE | 2017-11-01 15:33 | PD ---
Physical Exam Narrative I, Dr. Alarcon, have reviewed the advance practice practitioner's documentation and am in agreement, met with the patient face to face, made the diagnosis, and the medical decision making was done by me. *My assessment and Findings: Musculoskeletal pain vs. cervical radiculopathy 72yo M with very musculoskeletal left neck pain, left arm pain and left chest wall pain for 1 month. Pt had recent echo and CT angio. He just saw his cylinder handler Dr. Arvizu yesterday who does not think this is cardiac. Denies any fall but very tender on palpation. No rash or ecchymoses on chest wall. No midline cervical spine ttp. Tenderness is on left paraspinal muscle. Labs reviewed, WBC 12.9. H/H low but at baseline. BMP unremarkable. Troponin negative. CXR showed stable chest with compensated cardiomegaly. No acute infiltrate. CT cspine showed mild multilevel degenerative disc disease most prominent at C3-4 and C6-7. No obvious cord or nerve root compromise. Pain is very musculoskeletal and pt already saw his cylinder handler yesterday. Return precautions given. Data Data Last Documented VS Vital Signs Date Time Temp Pulse Resp B/P (MAP) Pulse Ox O2 Delivery O2 Flow Rate FiO2 11/01/17 15:45 97.9 70 16 130/81 (97) 98 11/01/17 13:33 Room Air 11/01/17 12:43 Orders Orders Electrocardiogram (11/01/17 12:51) Basic Metabolic Panel (Bmp) (11/01/17 12:51) Ckmb (Isoenzyme) Profile (11/01/17 12:51) Complete Blood Count With Diff (11/01/17 12:51) Magnesium (Mg) (11/01/17 12:51) Troponin I (11/01/17 12:51) Chest, Single Ap (11/01/17 12:51) Ecg Monitoring (11/01/17 12:51) Bilateral Bp Monitoring (11/01/17 12:51) Iv Access Insert/Monitor (11/01/17 12:51) Ct Cerv Spine W/O Contrast (11/01/17 ) Ed Discharge Order (11/01/17 15:31) Ketorolac Inj (Toradol Inj) (11/01/17 15:45) Labs Laboratory Tests Test 11/01/17 12:50 White Blood Count 12.9 TH/MM3 Red Blood Count 3.50 MIL/MM3 Hemoglobin 8.7 GM/DL Hematocrit 27.2 % Mean Corpuscular Volume 77.7 FL Mean Corpuscular Hemoglobin 24.8 PG Mean Corpuscular Hemoglobin Concent 31.9 % Red Cell Distribution Width 17.0 % Platelet Count 659 TH/MM3 Mean Platelet Volume 6.9 FL Neutrophils (%) (Auto) 71.8 % Lymphocytes (%) (Auto) 11.9 % Monocytes (%) (Auto) 11.9 % Eosinophils (%) (Auto) 3.3 % Basophils (%) (Auto) 1.1 % Neutrophils # (Auto) 9.2 TH/MM3 Lymphocytes # (Auto) 1.5 TH/MM3 Monocytes # (Auto) 1.5 TH/MM3 Eosinophils # (Auto) 0.4 TH/MM3 Basophils # (Auto) 0.1 TH/MM3 CBC Comment DIFF FINAL Differential Comment Blood Urea Nitrogen 16 MG/DL Creatinine 1.34 MG/DL Random Glucose 97 MG/DL Calcium Level 8.6 MG/DL Magnesium Level 1.8 MG/DL Sodium Level 140 MEQ/L Potassium Level 3.9 MEQ/L Chloride Level 106 MEQ/L Carbon Dioxide Level 24.2 MEQ/L Anion Gap 10 MEQ/L Estimat Glomerular Filtration Rate 53 ML/MIN Total Creatine Kinase 64 U/L Troponin I LESS THAN 0.02 NG/ML MDM Supervised Visit with YOANNA: Yes Interpretation(s) EKG: NSR 86bpm. Normal axis. PVC. Incomplete RBBB. Diagnosis Primary Impression: Musculoskeletal pain Scripts Hydrocodone-Acetaminophen (Hydrocodone-Acetaminophen) 5-325 mg Tab 1 TAB PO Q6H Y for PAIN, #12 TAB 0 Refills Prov: Sophia Alarcon DO 11/01/17 Sophia Alarcon DO Nov 01, 2017 15:33
[2017-11-01 15:45] VITALS: BP 130/81; TEMP 97.9
[2017-11-01] MEDS ORDERED: KETOROLAC TROMETHAMINE 30 MG/ML (IVP) VIAL IV PUSH ONE (15:45)
--- NOTE | 2017-11-03 00:45 | EKG ---
Date Performed: 11/01/2017 Time Performed: 12:41:30 PTAGE: 72 years EKG: Sinus rhythm WITH OCCASIONAL ECTOPIC PREMATURE COMPLEXES POSSIBLE LEFT ATRIAL ENLARGEMENT RIGHT BUNDLE BRANCH BLO CK ABNORMAL ECG INTERPRETATION BASED ON A DEFAULT AGE OF 40 YEARS PREVIOUS TRACING : 10/01/2017 22.07 Since the previous tracing, no significant change not ed DOCTOR: Victoriano Perez Interpretating Date/Time 11/03/2017 00:44:18
== END 2017-11-01 15:45 | disposition home or self-care (01) ==
LOC: NEPC 12:26
DX: R07.89 Other chest pain (principal); M54.2 Cervicalgia; I45.10 Unspecified right bundle-branch block; I10 Essential (primary) hypertension; E78.00 Pure hypercholesterolemia, unspecified; F17.210 Nicotine dependence, cigarettes, uncomplicated; Z79.899 Other long term (current) drug therapy
CPT/HCPCS: 71045; 72125; 80048; 82550; 83735; 84484; 85025; 93005; 96374; 99285; J1885

== ENCOUNTER 2017-12-03 19:50 | Emergency (ER) | payer OTHER, MEDICAID ==
[~2017-12-03] VITALS: Ht 177.8 cm; Wt 58.0 kg
[~2017-12-03 19:50] MED LIST changes: -CHOL MED; -DOXY100C PO; +HYDR-3516 PO; -OMEP20TA93 PO; -PRED10PA PO
[2017-12-03 20:07] VITALS: BP 134/79; PULSE 115; RESP 16; TEMP 97.4; O2SAT 99
== END 2017-12-03 22:15 | disposition left against medical advice (07) ==
LOC: NED 19:50
DX: Z53.21 Procedure and treatment not carried out due to patient leaving prior to being seen by health care provider (principal)
CPT/HCPCS: 99281